=== PATIENT | female | born 1990 | race Caucasian/White ===

== ENCOUNTER 2016-11-10 05:47 | Inpatient (IN) | payer OTHER ==
[2016-11-10 07:54] LABS: HCT 34.2 % (37.0-47.0); HGB 11.7 g/dl (12.5-16.0); MCH 32.6 pg (25.0-31.0); MCHC 34.2 g/dL (32.0-36.0); MCV 95.3 fL (78.0-100.0); MPV 9.9 fL (6.0-9.5); RBC 3.59 M/uL (4.20-5.40)
[2016-11-10 12:34] LABS: BILIRUBIN NEGATIVE (NEGATIVE); BLOOD NEGATIVE Ery/uL (NEGATIVE); CLARITY CLEAR (CLEAR); COLOR AMBER (YELLOW); GLUCOSE (U) NORMAL (NORMAL); KETONE (U) NEGATIVE (NEGATIVE); LEUKOCYTES NEGATIVE Leu/uL (NEGATIVE); NITRITE NEGATIVE (NEGATIVE); PROTEIN NEGATIVE (NEGATIVE); SPECIFIC GRAVITY 1.015 (1.001-1.030); pH 6.5 (5.0-9.0)
[2016-11-10 12:59] LABS: HCT 28.3 % (37.0-47.0); HGB 9.6 g/dl (12.5-16.0); MCH 32.7 pg (25.0-31.0); MCHC 33.9 g/dL (32.0-36.0); MCV 96.3 fL (78.0-100.0); MPV 9.6 fL (6.0-9.5); RBC 2.94 M/uL (4.20-5.40); WBC 11.2 K/uL (4.0-10.5)
[2016-11-10 18:18] LABS: HCT 28.1 % (37.0-47.0); HGB 9.7 g/dl (12.5-16.0); MCH 31.8 pg (25.0-31.0); MCHC 34.5 g/dL (32.0-36.0); MCV 92.1 fL (78.0-100.0); MPV 9.6 fL (6.0-9.5); RBC 3.05 M/uL (4.20-5.40); RDW 14.9 % (11.5-14.0); WBC 17.8 K/uL (4.0-10.5)
[2016-11-11 05:48] LABS: HCT 24.9 % (37.0-47.0); HGB 8.5 g/dl (12.5-16.0); MCH 31.4 pg (25.0-31.0); MCHC 34.1 g/dL (32.0-36.0); MCV 91.9 fL (78.0-100.0); RBC 2.71 M/uL (4.20-5.40); RDW 15.7 % (11.5-14.0); WBC 15.8 K/uL (4.0-10.5)
[2016-11-12 05:44] LABS: HCT 21.1 % (37.0-47.0); HGB 7.2 g/dl (12.5-16.0); MCH 31.7 pg (25.0-31.0); MCHC 34.1 g/dL (32.0-36.0); MPV 9.3 fL (6.0-9.5); RBC 2.27 M/uL (4.20-5.40); RDW 15.8 % (11.5-14.0); WBC 11.1 K/uL (4.0-10.5)
[2016-11-12 19:20] LABS: HCT 26.6 % (37.0-47.0); HGB 9.6 g/dl (12.5-16.0); MCH 31.5 pg (25.0-31.0); MCHC 36.1 g/dL (32.0-36.0); MCV 87.2 fL (78.0-100.0); MPV 10.3 fL (6.0-9.5); RBC 3.05 M/uL (4.20-5.40); RDW 16.8 % (11.5-14.0); WBC 11.1 K/uL (4.0-10.5)
--- NOTE | 2016-11-13 11:05 | NUR ---
REFERRAL RECEIVED FOR PT. TO HAVE COPY OF RESOURCES. MET WITH PT. SHE CURRENTLY RESIDES WITH HER PARENTS, HER TWO CHILDREN, BOY AGE 7 AND BOY AGE 2 1/2. HER SISTER AND HER CHILD ALSO RESIDE WITH HER. PT. REPORTS THAT SHE DOES NOT KNOW WHERE THE FOB IS, BUT WILL GO THROUGH THE CHILD SUPPORT OFFICE TO LOCATE HIM, SHE DID THIS WITH HER OTHER TWO CHILDEN. PT. STATES THAT SHE HAS A GOOD SUPPORT SYSTEM WITH HER PARENTS AND THEY ARE VERY HELPFUL. SHE REPORTS THAT HER OLDEST SON HAS ADHD AND IS INTELLECTUALLY DELAYED. HER SECOND SON IS AUTISTIC. BOTH OF HER CHILDREN HAVE BEEN EVALUATED AT [facility]. PER PT. SHE HAS BEEN GENECTICALLY TESTED AND FOUND TO HAVE 3 FACTORS THAT COULD DETERMINED DISABILITIES. PT. COULD NOT ELABORATE ON THIS INFORMATION. PT. WAS HOLDING HER INFANT AND APPEARED TO BE VERY ATTENTIVE. SHE SPOKE POSITIVELY OF HAVING A GIRL AND APPEARED VERY EXCITED. PT. DOES NTO WORK, BUT STAYS HOME WITH HER CHILDREN. HER PARENTS ARE EMPLOYED. PT. WAS GIVEN INFORMAITON RELATED TO [employer] AND THE HANDS PROGRAM. PT. HAS BEEN INVOVLED WITH THE HANDS PROGRAM IN THE PAST. PT. STATED THAT SHE GRADUATED HIGH SCHOOL. SHE DOES NOT REPORT ANY ABUSE/NEGLECT, DRUG/ALCOHOL OR CIGARETTE USE. PT. REPORTED THAT SHE HAS A BABY BED, CAR SEAT, CLOTHING AND NECESSARY ITEMS FOR THE BABY.
== END 2016-11-12 20:44 | disposition home or self-care (01) | DRG 765 ==
LOC: FOB 05:47 → FMS 09:00 → FOB 11-12 20:44
PROVIDERS: ADMIT Obstetrics & Gynecology
PROC: 10D17ZZ Extraction of Products of Conception, Retained, Via Natural or Artificial Opening (ICD-10-PCS; 2016-11-10)
PROC: 0U7 Female Reproductive System, Dilation (ICD-10-PCS; 2016-11-10)
PROC: 30233N1 Transfusion of Nonautologous Red Blood Cells into Peripheral Vein, Percutaneous Approach (ICD-10-PCS; 2016-11-10)
PROC: 10D00Z1 Extraction of Products of Conception, Low, Open Approach (ICD-10-PCS; principal; 2016-11-10 09:00)
PROC: 30233N1 Transfusion of Nonautologous Red Blood Cells into Peripheral Vein, Percutaneous Approach (ICD-10-PCS; 2016-11-12)
DX: O34.211 Maternal care for low transverse scar from previous cesarean delivery (principal); D62 Acute posthemorrhagic anemia; O72.1 Other immediate postpartum hemorrhage; N85.8 Other specified noninflammatory disorders of uterus; Z3A.39 39 weeks gestation of pregnancy; Z37.0 Single live birth; O99.824 Streptococcus B carrier state complicating childbirth; O99.02 Anemia complicating childbirth; Z88.1 Allergy status to other antibiotic agents
CPT/HCPCS: 36415; 36430; 81003; 86850; 86900; 86901; 86922; 88304; 88307; J0690; J1885; J2210; J2274; J2405; J3010; P9016